=== PATIENT | female | born 1975 | race Hispanic/Latino ===

== ENCOUNTER 2018-01-31 21:02 | Day surgery (SDC) | payer SELFPAY ==
[~2018-01-31 21:02] MED LIST: Dexamethasone 20 MG/5 ML VIAL ONE; Glycopyrrolate 0.2 MG/ML 5 ML SYRINGE ONE; Lidocaine 1% PF 5 ML VIAL ONE; Ondansetron HCl/PF 4 MG/2 ML Vial ONE; PROPOFOL 200 MG/20 ML VIAL ONE; Succinylcholine Chloride 20 MG/ML 10 ml SYRINGE FS ONE
[2018-01-31] MEDS ORDERED: Bupivacaine/Epinephrine 0.25% 30 ML VIAL ONE (21:38)
[2018-01-31] MEDS ORDERED: Ondansetron HCl/PF 4 MG/2 ML Vial ONE (21:55)
[2018-01-31] MEDS ORDERED: Famotidine/PF 20 mg/2ml Vial ONE (21:55)
[2018-01-31] MEDS ORDERED: Fentanyl 100 MCG/2 ML VIAL ONE (21:55)
[2018-01-31] MEDS ORDERED: MEROPENEM 1 GM/50 ML 1 GM in Premix Bag 1 BAG IVPB SCH (22:30)
--- NOTE | 2018-01-31 22:48 | ULT ---
ULTRASOUND ABDOMEN LIMITED: (RIGHT UPPER QUADRANT) Date: 01/31/18 Time: 10:26 p.m. HISTORY: Right upper quadrant abdominal pain, nausea, and vomiting in 42-year-old female. FINDINGS: Gallbladder: Mildly distended. Wall is diffusely thickened up to 4 mm. No sonographic Mahan's sign. Small amount of sludge in the neck. No gallstone identified. No pericholecystic fluid. Common duct: 3 mm. Liver: Normal size. Uncertain whether or not the echogenicity is heterogeneous. Pancreas: Nonspecific sonographic appearance. Right kidney: No hydronephrosis. IMPRESSION: Mild mural thickening of the gallbladder with a small amount of sludge. This is nonspecific. ALLA [place] POS: JIN
[2018-01-31] MEDS ORDERED: Promethazine HCl 25 MG/ML VIAL SLOW IVP PRN (23:36)
[2018-01-31] MEDS ORDERED: Ondansetron HCl/PF 4 MG/2 ML Vial IVP PRN (23:36)
[2018-01-31] MEDS ORDERED: Promethazine HCl 25 MG/ML VIAL IM PRN (23:36)
[2018-01-31] MEDS ORDERED: SUGAMMADEX SODIUM 200 MG/2 ML VIAL ONE (23:57)
[2018-02-01] MEDS ORDERED: Promethazine HCl 25 MG/ML VIAL ONE (00:44)
[2018-02-01] MEDS ORDERED: Fentanyl 100 MCG/2 ML VIAL ONE (00:50)
[2018-02-01] MEDS ORDERED: HYDROcodone/Acetaminophen 7.5/325 mg Tablet PO PRN ×2 (01:43)
[2018-02-01] MEDS ORDERED: traMADol HCl 50 MG TAB PO PRN (01:44)
[2018-02-01] MEDS ORDERED: Promethazine 25 MG TAB PO PRN ×2 (01:45→01:46)
[2018-02-01] MEDS ORDERED: Ondansetron ODT 4 MG TAB PO PRN (01:46)
[2018-02-01] MEDS ORDERED: Morphine 4 MG/ML VIAL SLOW IVP PRN ×2 (01:48→01:49)
[2018-02-01] MEDS: traMADol HCl 50 MG TAB PO PRN ×2 (04:01→08:41)
[2018-02-01] MEDS ORDERED: MEROPENEM 1 GM/50 ML 1 GM in Premix Bag 1 BAG IVPB SCH (06:00)
--- NOTE | 2018-02-01 06:47 | HP ---
REASON CHIEF COMPLAINT: Abdominal pain. HISTORY OF PRESENT ILLNESS: Ms. Orville Vidal is a 42-year-old woman with abdominal pain starting yes terday afternoon around 4:00. She started to have nausea and vomiting this morning around 10 and the n developed fevers and chills in the afternoon and felt like she was going to faint so she came into her local emergency room. A CT of the abdomen and pelvis was performed, which reveals an irregular d ilated thick walled appendix consistent with acute appendicitis. She had some low density lesions in the bilateral pelvis noted consistent with ovarian cyst, but no other acute abnormalities. She has also had some intermittent abdominal pain after eating meat. She states that this started about a we ek ago, but the pain did get bad until yesterday. PAST MEDICAL HISTORY: H. pylori. PAST SURGICAL HISTORY: . FAMILY HISTORY: None per patient. SOCIAL HISTORY: She does not smoke, drink or use illicit drugs. REVIEW OF SYSTEMS: Negative except per HPI. PHYSICAL EXAMINATION: VITAL SIGNS: Temperature 98.5, heart rate 93, respirations 15, 100% saturated on room air, blood pre ssure 100/63. GENERAL: Reveals a healthy appearing woman in no acute distress. She is not toxic or flushed in maty earance. She is not jaundiced or icteric. HEENT: Unremarkable. NECK: Supple, without lymphadenopathy or thyroid nodules. HEART: Regular in its rate and rhythm without murmurs, rubs or gallops. LUNGS: Clear to auscultation bilaterally. ABDOMEN: Soft and nondistended, no palpable masses or hernias. Healed Pfannenstiel incision. She i s tender to palpation in the left upper quadrant and bilateral lower quadrants and mildly tender in t he right upper quadrant. She does not exhibit rigidity, rebound or guarding. No palpable masses are appreciated. EXTREMITIES: Warm and well perfused without edema. NEUROLOGIC: No focal deficits. PSYCHIATRIC: Alert, oriented, and appropriate. LABORATORY AND X-RAY FINDINGS: White count is 7.3, but she does have a left shift of 95% neutrophils . Her hemoglobin is 9 and her hematocrit is 29. This appears to be chronic and consistent with what her labs showed in 2012, but there are no intervening results. CT images are reviewed and I agree w ith the written report. ASSESSMENT: Acute appendicitis. PLAN: I have recommended laparoscopic appendectomy for symptomatic relief. In addition, she has doyle e symptoms which are more suggestive of gallbladder pain, so I have ordered a stat gallbladder ultras ound. If this shows gallstones, then laparoscopic cholecystectomy under the same anesthesia would be recommended. The inherent risks of laparoscopic appendectomy were described. These include but are not limited to bleeding, infection, risks of anesthesia, damage to nearby structures including bowel and blood vessels, need for open surgery or further procedures: If laparoscopic cholecystectomy is performed then damage to the bile duct is also possible. All of her questions were answered. She paige s requested that we wait until her return from dropping of her kids before we go back to the operating room. Antibiotics were ordered.
[2018-02-01 08:51] VITALS: BP 102/62; TEMP 98.5
--- NOTE | 2018-02-07 17:26 | PDOC.OP ---
Operative Note - Operative Note Operative Note: PROCEDURE: Laparoscopic appendectomy SURGEON: Juliann Cason M.D. DATE OF PROCEDURE: 01/31/2018 PREOPERATIVE DIAGNOSIS: Appendicitis POSTOPERATIVE DIAGNOSIS: Appendicitis HISTORY: Patient is a 42-year-old woman who presented to the emergency room with acute onset of severe lower abdominal pain. CT showed evidence of appendicitis and recommendation was made proceed with laparoscopic appendectomy. FINDINGS: Inflamed appendix without evidence of perforation. Incidentally noted bilateral ovarian/fallopian cysts. DESCRIPTION OF PROCEDURE: After informed consent was obtained and appropriate antibiotics continued, the patient was taken to the operating room and placed in the supine position and general endotracheal anesthesia was administered. The bladder was decompressed with a Moore catheter and the abdomen was prepped and draped in the standard sterile fashion. Local anesthesia was infused to the skin and subcutaneous tissues superior to the umbilicus. A transverse skin incision was made and a Veress needle placed into the abdominal cavity and carbon dioxide gas insufflated without difficulty. Opening pressure was less than 5. Carbon dioxide gas was insufflated to an intra-abdominal pressure 15 and the patient tolerated this well. The Veress needle was withdrawn and a [place] port advanced under direct laparoscopic vision into the abdominal cavity. Two additional ports were placed in the suprapubic and left lateral abdomen under direct laparoscopic vision after local anesthesia was infused at these sites. The appendix was identified and appeared inflamed but not perforated. The appendix was grasped by the mesoappendix and elevated. The mesoappendix was then sequentially ligated and divided down to the base of the appendix, which was normal in appearance and was clearly seen to be at the confluence of the tenia. Two Endoloops were placed around the base of the appendix and the appendix was divided between these Endoloops, placed into an EndoCatch bag and drawn out through the suprapubic incision. The suprapubic trocar was then replaced and the operative site was easily irrigated to clear. On suctioning the irrigation fluid out of the pelvis the patient was noted to have benign-appearing ovarian and fallopian cysts bilaterally. The suprapubic trocar was removed and the fascia closed under direct laparoscopic vision with a 0 Vicryl suture on a GraNee needle with excellent technical result. The left lateral trocar was then removed and hemostasis verified. Carbon dioxide gas was desufflated through the umbilical trocar which was then removed. The skin incisions were irrigated and additional local anesthesia infused at each site. The skin was closed with 4-0 subcuticular Monocryl sutures and Dermabond dressings were placed. The patient was extubated and taken to the recovery room in good condition. Estimated blood loss was minimal. There were no complications. SPECIMEN: Appendix.
== END 2018-02-01 11:55 | disposition home or self-care (01) ==
LOC: ERS 21:02 → SDC/OP 22:34 → 3SE 02-01 01:17 → SDC/OP 02-01 11:55
PROVIDERS: ATTEND Surgery
PROC: 0DTJ4ZZ Resection of Appendix, Percutaneous Endoscopic Approach (ICD-10-PCS; principal; 2018-02-01)
DX: K35.80 Unspecified acute appendicitis (principal)
CPT/HCPCS: 76705; 88304; 96374; J0131; J1100; J2001; J2185; J2405; J2550; J2704; J3010; S0028

== ENCOUNTER 2018-02-12 08:52 | Outpatient (CLI) | payer OTHER | END 2018-02-12 08:53 | disposition home or self-care (01) | LOC: BICMAMMO 08:52 | PROVIDERS: ATTEND Family Medicine | DX: N63.20 Unspecified lump in the left breast, unspecified quadrant (principal) | CPT/HCPCS: 77066; G0279 ==